=== PATIENT | male | born 1990 | race African-American/Black ===

== ENCOUNTER 2017-12-29 15:32 | Emergency (ER) | payer MEDICAID ==
[~2017-12-29] VITALS: Ht 167.6 cm; Wt 93.0 kg
[~2017-12-29 15:32] MED LIST: ACETAMINOPHEN-1 EAC1 ORAL; ANTIVERT25 MG ORAL; ATENOLOL25 MG ORAL; BENADRYL25 MG ORAL; CITRATE OF MAG300 ML PO; CYCLOBENZAPRINE10 MG ORAL; HYDROCODON-ACE1 EAC8 ORAL; IBUPROFEN600 MG ORAL; LORAZEPAM1 MG ORAL; NORCO 5-325 TA1 EACH ORAL; NORVASC5 MG ORAL; PREDNISONE20 MG ORAL; UNOBMED
[2017-12-29 16:04] VITALS: BP 150/83
--- NOTE | 2017-12-29 16:18 | Emergency Room Report ---
History of Present Illness General Chief Complaint: Sore Throat Source: Patient Present Illness HPI Patient is a [id number]-year-old male presents that began 5 days ago. Patient states pain is in severity, no medication has been taken. He states she's had a mild fever home, no medication has been taken for the fever and is afebrile upon arrival. Patient denies cough, runny nose or associated symptoms. Allergies: Coded Allergies: No Known Allergies (Unverified , 01/22/14) Patient History Reviewed Nursing Documentation: PMH: Agreed; PSxH: Agreed Nursing Documentation-PMH Past Medical History: No History, Except For Hx Cardiac Problems: Yes Hx Hypertension: Yes Hx Pacemaker: No Hx Asthma: No Hx COPD: No Hx Diabetes: No Hx Cancer: No Hx Gastrointestinal Problems: No Hx Dialysis: No History Of Psychiatric Problem: No Hx Neurological Problems: Yes - anxiety Hx Cerebrovascular Accident: No Hx Transient Ischemic Attacks: No Hx Dementia: No Hx Alzheimer's Disease: No Hx Parkinson's Disease: No Hx Meningitis: No Hx Encephalitis: Yes Hx Seizures: No Hx Epilepsy: No Hx Multiple Sclerosis: No Hx Cerebral Palsy: No Hx Amyotrophic Lat Sclerosis: No Hx Guillian-[place]ch[place] Syndrome: No Hx Paralysis: No Hx Peripheral Neuropathy: No Hx Spinal Cord Injury: No Hx Head Trauma: No Hx Traumatic Brain Injury: No Hx Memory Loss: No Hx Concentration Difficulty: No Hx Speech Problem: No Hx Tremors: No Hx Vertigo: No Hx Dizziness: No Hx Syncope: No Hx Headaches: No Hx Aphasia: No Hx Dysphasia: No Hx Numbness: No Hx Fatigue: No Hx Neurologic Surgery: No Hx Brain Shunt: No Review of Systems ENT: Reports: throat pain All Other Systems: negative except mentioned in HPI Physical Exam Vital Signs Date Time Temp Pulse Resp B/P (MAP) Pulse Ox O2 Delivery O2 Flow Rate FiO2 12/29/17 15:54 97.5 99 18 150/83 98 Room Air 97.5 Sp02 EP Interpretation: reviewed, normal General Appearance: no apparent distress, alert, GCS 15, non-toxic Head: normocephalic, atraumatic Eyes: bilateral eye normal inspection, bilateral eye PERRL ENT: hearing grossly normal, normal pharynx, no angioedema, normal voice, other - tonsils are 3+, beefy red, no peritonsillar abscess or Rivera angina Neck: full range of motion, supple/symm/no masses Respiratory: chest non-tender, lungs clear, normal breath sounds, speaking full sentences Cardiovascular #1: regular rate, rhythm, no edema Cardiovascular #2: 2+ carotid (R), 2+ carotid (L), 2+ radial (R), 2+ radial (L) , 2+ dorsalis pedis (R), 2+ dorsalis pedis (L) Gastrointestinal: normal bowel sounds, non tender, soft, non-distended, no guarding, no rebound Rectal: deferred Genitourinary: normal inspection, no CVA tenderness Musculoskeletal: back normal, gait/station normal, normal range of motion, non- tender, calf tenderness Neurologic: alert, oriented x3, responsive, motor strength/tone normal, sensory intact, speech normal Psychiatric: judgement/insight normal, memory normal, mood/affect normal, no suicidal/homicidal ideation Reflexes: 3+ bicep (R), 3+ bicep (L), 3+ tricep (R), 3+ tricep (L), 3+ knee (R) , 3+ knee (L) Skin: normal color, no rash, warm/dry, well hydrated Lymphatic: no adenopathy Medical Decision Making PA Attestation Supervising physician is Dr. Randhawa Reaction to Intervention: Improved Diagnostic Impression: Primary Impression: Acute tonsillitis ER Course Findings consistent with acute tonsillitis. No evidence of peritonsillar abscess or Rivera's angina. Patient is given penicillin instructed to follow up with PCP for further evaluation and management. Patient understands and is agreeable with plan. Last Vital Signs Date Time Temp Pulse Resp B/P (MAP) Pulse Ox O2 Delivery O2 Flow Rate FiO2 12/29/17 16:04 97.5 18 150/83 98 Room Air 97.5 12/29/17 15:54 99 Status: improved Disposition: HOME, SELF-CARE Scripts Penicillin V Potassium (Penicillin V Potassium) 250 Mg Tablet 500 MG PO Q6H for 10 Days, #40 TAB 0 Refills Prov: Laura Rogers 12/29/17 Patient Instructions: Sore Throat Laura Rogers Dec 29, 2017 16:18
[2017-12-29] MEDS ORDERED: PENICILLIN V P250 MG PO (16:20)
[2017-12-29 16:30] VITALS: BP 150/83
== END 2017-12-29 16:32 | disposition home or self-care (01) ==
LOC: EMR 16:17
DX: J03.90 Acute tonsillitis, unspecified (principal); I10 Essential (primary) hypertension; Z86.61 Personal history of infections of the central nervous system
CPT/HCPCS: 99283